=== PATIENT | female | born 1935 | race Caucasian/White ===

== ENCOUNTER → 2017-09-22 13:27 | Outpatient (CLI) | payer OTHER, SELFPAY ==
--- NOTE | 2017-09-22 13:29 | DI.US.S_ITS ---
PROCEDURE: US PERIPH VENOUS LOW EXTREM RT INDICATIONS: EDEMA TECHNIQUE: Real-time imaging, as well as color and pulse Doppler interrogation, were performed of the lower extremity deep veins from the inguinal ligament to the popliteal fossa. COMPARISON: None. FINDINGS: The deep veins are normally compressible, and free of intraluminal thrombus. Color and pulse Doppler demonstrate normal phasic intraluminal flow. There is normal augmentation response to distal compression maneuver. IMPRESSION: No deep venous thrombosis identified within the right lower extremity. Dictated by: Carlos Alberto Quigley [facility] Interpreted: Mariela Zuniga MD on 09/22/2017 at 14:52 Approved by: Mariela Zuniga MD, PhD on 09/22/2017 at 17:01
== END ==
PROVIDERS: Family Provider Family Medicine; PCP Family Medicine; Visit Provider Family Medicine
DX: R60.9 Edema, unspecified (principal); E11.9 Type 2 diabetes mellitus without complications; L98.9 Disorder of the skin and subcutaneous tissue, unspecified
CPT/HCPCS: 93971

== ENCOUNTER → 2017-10-03 07:53 | Outpatient (CLI) | payer OTHER, SELFPAY ==
[2017-10-03 09:46] LABS: Add Manual Diff / Slide Review NO; Basophils Percent Auto 0.9 % (0-2); Eosinophils Percent Auto 4.1 % (2-4); Hematocrit 36.5 % (36-46); Hemoglobin 12.1 g/dL (12.0-16.0); Lymphocytes Percent Auto 36.7 % (25-40); Mean Corpuscular HGB Conc 33.1 % (30-36); Mean Corpuscular Hemoglobin 28.3 PG (26-34); Mean Corpuscular Volume 85.6 fL (80-100); Monocytes Percent Auto 9.7 % (3-14); Neutrophils Absolute Auto 2500 /uL (3000-5900); Neutrophils Percent Auto 48.6 % (50-75); Platelet Count 189 X10^3/uL (150-400); Red Blood Cell Count 4.26 X10^6/uL (4.0-5.2); White Blood Cell Count 5.1 X10^3/uL (4.5-11.0)
[2017-10-03 09:56] LABS: Alanine Aminotransferase 20 IU/L (9-52); Albumin 3.8 g/dL (3.5-5.0); Albumin Globulin Ratio 1.2 (1.0-2.8); Alkaline Phosphatase 88 U/L (38-126); Aspartate Aminotransferase 20 IU/L (14-36); Bilirubin Total 0.6 mg/dL (0.2-1.3); Blood Urea Nitrogen 25 mg/dL (7-17); Calcium 9.5 mg/dL (8.4-10.2); Carbon Dioxide 29 mmol/L (22-32); Chloride 102 mmol/L (98-107); Cholesterol 168 mg/dL (140-199); Estimated Glomerular Filt Rate 53.1 mL/min (>60); Globulin 3.1 g/dL (1.7-4.1); Glucose 172 mg/dL (80-110); HDL Cholesterol 52 mg/dL (40-60); HEMOLYSIS < 15 (0-50); LDL Cholesterol Calculated 83 mg/dL (<100); Potassium 4.9 mmol/L (3.4-5.1); Sodium 140 mmol/L (137-145); Total Protein 6.9 g/dL (6.3-8.2); Triglycerides 167 mg/dL (35-150)
[2017-10-03 10:05] LABS: Vitamin D 25 Hydroxy (D3) 52.1 ng/mL (30.0-100.0)
[2017-10-03 10:20] LABS: TSH w/ Reflex to FT4 1.83 uIU/mL (0.47-4.68)
[2017-10-03 10:38] LABS: Vitamin B12 899 pg/mL (239-931)
[2017-10-03 10:51] LABS: Hemoglobin A1C% w Est Avg Glu 8.5 % (4.0-6.0)
== END ==
PROVIDERS: PCP Family Medicine; Visit Provider Family Medicine
DX: I10 Essential (primary) hypertension (principal); E78.5 Hyperlipidemia, unspecified; E11.9 Type 2 diabetes mellitus without complications; E03.9 Hypothyroidism, unspecified; E53.8 Deficiency of other specified B group vitamins; E55.9 Vitamin D deficiency, unspecified
CPT/HCPCS: 80053; 80061; 82306; 82607; 83036; 84443; 85025

== ENCOUNTER → 2017-10-08 17:33 | Outpatient (CLI) | payer OTHER, SELFPAY | PROVIDERS: Family Provider Family Medicine; PCP Family Medicine; Visit Provider Family Medicine | DX: L98.9 Disorder of the skin and subcutaneous tissue, unspecified (principal) | CPT/HCPCS: 87070; 87075; 87205 ==

== ENCOUNTER → 2017-10-21 11:18 | Outpatient (CLI) | payer OTHER, SELFPAY ==
--- NOTE | 2017-10-21 | OV.WND_ITS ---
Progress Note Details Patient Name: Harrison Egan Patient Number: [id number] PatientPatientDate: 10/21/2017 Clinician: Farida Velázquez Clinician Cosigner: Julia Leong Physician / Microbiology Manager: Martin Mcgraw SUBJECTIVE Chief Complaint This information was obtained from the patient Ulcer on right lateral leg. Allergies Novocain (Severity: Moderate, Reaction: adrenaline schaffer) HPI This information was obtained from the patient 10/21/17. Seen by Dr. Mcgraw. The patient's wound culture from her last visit showed no growth and she reports less pain and drainage associated with the ulcer over the past few days. 10/14/17. Seen by Dr. Mcgraw. 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 She has chronic venous hypertension in the right lower leg but does not wear a compression stocking. She's also been on Keflex for cellulitis associated with the ulcer but feels the pain and redness has only partially resolved. She also has a history of diabetes that is fairly well controlled with most blood sugars below 200 she states. Past Medical History This information was obtained from the patient Patient has a medical history of: Type II Diabetes High Cholesterol Hypothyroidism Pancreatitis Breast Cancer (L side) Complaints and Symptoms This information was obtained from the patient Patient complains of: General Notes: I have reviewed and concur with the Review of Systems and Past Family Social History documents completed by the clinician, I have reviewed and concur with the Wound Assessment document completed by the clinician Cardiovascular (Central/Peripheral): Lower extremity (leg) swelling Hematologic/Lymphatic: Bleeding Tendency Integumentary (Hair/Skin/Nails): Open Sore Prior Wound History: Drainage, Erythema, Pain Patient denies complaints or symptoms related to: Cardiovascular (Central/Peripheral): Lower extremity (leg) resting pain Constitutional Symptoms (General Health): Chills, Fever Ear/Nose/Mouth/Throat: Hearing Loss / Aid Hematologic/Lymphatic: Bleeding / Clotting Disorders Neurological: Loss of Protective Sensation Respiratory: Shortness of Breath Additional Information Does patient have a history of Cancer? Yes? Complete all questions.: Yes Location of Cancer: L breast List Treating Oncologist: Surgeon- Dr. Colin Patient underwent Radiation Treatment? If yes, answer question below.: No Date of Radiation Month/Year: n/a OBJECTIVE Constitutional BP elevated; Afebrile; Alert and in no distress. Well developed. Alert. Clean appearing.. Height/Length: 61 in (154.94 cm), Weight: 157.3 lbs (71.5 kgs), BMI: 29.7, Temperature: 98.3 ?F (36.83 ?C), Pulse: 64 bpm, Respiratory Rate: 18 breaths/min, Blood Pressure: 153/57 mmHg, Capillary Blood Glucose: 180 mg/dl, Pulse Oximetry: 98 %. Vital Signs Notes: Glucose per patient Ears, Nose, Mouth, and Throat: No clinically significant hearing loss on informal examination. Cardiovascular: 1+ right lower extremity edema. Integumentary (Hair, Skin) No periwound erythema, warmth, or significant drainage. No periwound rashes appreciated or noted otherwise.. Refer to appropriate clinician wound documentation for this visit; right lower leg ulcer extends to deep subcut with base partially covered with pink granulation, remainder fibrin and slough. Wound #1 Right, Distal Leg is a chronic Full Thickness Venous Ulcer and has received a status of Not Healed. Subsequent wound encounter measurements are 0.5cm length x 0.4cm width x 0.2cm depth, with an area of 0.2 sq cm and a volume of 0.04 cubic cm. No tunneling has been noted. No sinus tract has been noted. No undermining has been noted. There is a moderate amount of seropurulent drainage noted which has no odor. The patient reports a wound pain of level 0/10. The wound margin is attached. Wound bed has No epithelialization, No eschar, Yes slough, Yes pink, firm granulation. The periwound skin moisture is normal. The periwound skin exhibited: Edema, Erythema, Hemosiderosis. The periwound skin did not exhibit: Brawny Induration, Excoriation, Induration, Callus, Crepitus, Fluctuance, Friable, Rash, Atrophie [place], Cyanosis, Ecchymosis, Pallor, Rubor. The temperature of the periwound skin is WNL. Periwound skin does not exhibit signs or symptoms of infection. Local Pulse is Palpable. Neurological: Cranial nerves grossly intact with symmetric function normal by informal observation.. ASSESSMENT Active Problems ICD-10 (Encounter Diagnosis) L97.822 - Non-pressure chronic ulcer of other part of left lower leg with fat layer exposed PROCEDURES Wound #1 Wound #1 (Venous Ulcer) is located on the right, distal leg. A skin/ subcutaneous tissue level surgical debridement with a total area debrided of 0.24 sq cm was performed by Martin Mcgraw MD. Subcutaneous was removed along with devitalized tissue: exudate and slough. The following instrument(s) were used: curette. Pain control was achieved using 4% Lido. A time out was conducted prior to the start of the procedure. A minimal amount of bleeding was controlled with n/a. The procedure was tolerated well with a pain level of 0 throughout and a pain level of 0 following the procedure. Post Debridement Measurements: 0.6cm length x 0.4cm width x 0.4cm depth; with an area of 0.24 sq cm and a volume of 0.096 cubic cm; Additional Information Muscle fascia or bone removed and sent to pathology?: No PLAN Wound Orders: Wound #1 Right, Distal Leg Cleanser Cleanse Wound: - Normal saline and gauze in clinic, use distilled water at home. May Shower. - Use cast protector or plastic bag and tape. Can purchase cast protector at your local drug store near the pharmacy. Topical Treatments Antibiotic/Antimicrobial Ointment/Cream. - Gentamicin ointment. Dressings Cover and secure with: - Large 4 sided bandaid. Change Dressing: - Daily. Additional Orders: Compression/Edema Control Elevation of leg(s) above the level of the heart when sitting. Avoid prolonged standing in one place. Single Layer Compression Hose - Tetragrip F to right leg. On in the morning, remove at night. Follow-Up Appointments Return Appointment: - - One week. 10/30/17 is ok Other information: If you develop fever, chills, increased pain, drainage, redness or swelling please call our office. If after hours, respond to the ER. Should you experience any significant changes in your wound(s) or have any questions regarding your home care instructions please contact the wound center @ [phone]. If after hours, contact your primary care physician or go to the hospital emergency room. Scribing Attestation I attest, as the nurse, that I scribed these orders for the physician. I've reviewed the clinician's documentation and agree with the evaluation and plan as written. In addition, the patient's ulcer demonstrates evidence of non-viable devitalized tissue which will continue to benefit from sharp debridement to help promote granulation and expedite healing. Electronic Signature(s) Signed By: Date: Martin Mcgraw MD 10/22/2017 13:47:32 Entered By: Martin Mcgraw on 10/22/2017 11:14:03
== END ==
PROVIDERS: Family Provider Family Medicine; PCP Family Medicine; Visit Provider Internal Medicine
DX: I87.2 Venous insufficiency (chronic) (peripheral) (principal); L97.812 Non-pressure chronic ulcer of other part of right lower leg with fat layer exposed
CPT/HCPCS: 11042; 36415; 77063; 77065; 82378; 86300; 87070; 87075; 87205

== ENCOUNTER → 2017-10-27 10:53 | Outpatient (CLI) | payer OTHER, SELFPAY | PROVIDERS: Family Provider Family Medicine; PCP Family Medicine; Visit Provider Internal Medicine | DX: I87.2 Venous insufficiency (chronic) (peripheral) (principal); L97.812 Non-pressure chronic ulcer of other part of right lower leg with fat layer exposed; Z91.19 Patient's noncompliance with other medical treatment and regimen | CPT/HCPCS: 11042 ==

== ENCOUNTER → 2017-11-03 14:17 | Outpatient (CLI) | payer OTHER, SELFPAY ==
--- NOTE | 2017-11-03 | OV.WND_ITS ---
Progress Note Details Patient Name: Harrison Egan Patient Number: [id number] PatientPatientDate: 11/03/2017 Clinician: Farida Velázquez Clinician Cosigner: Julia Leong Physician / Sorority Supervisor: Martin Mcgraw SUBJECTIVE Chief Complaint This information was obtained from the patient Ulcer on right lateral leg. Allergies Novocain (Severity: Moderate, Reaction: adrenaline schaffer) HPI This information was obtained from the patient 11/03/17. Seen by Dr. Mcgraw. The patient does not report pain or significant drainage associated with the chronic right lower leg venous ulcer since her last visit. Her WATSON study today was .9 in the right lower leg. 10/27/17. Seen by Dr. Mcgraw. The patient does not report pain or significant drainage associated with the chronic right lower leg venous ulcer since her last visit. She does state though she's not wearing a compression stocking to address the chronic venous hypertension in the leg as recommended. 10/21/17. Seen by Dr. Mcgraw. The patient's wound culture from her last visit showed no growth and she reports less pain and drainage associated with the ulcer over the past few days. 10/14/17. Seen by Dr. Mcgraw. 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 She has chronic venous hypertension in the right lower leg but does not wear a compression stocking. She's also been on Keflex for cellulitis associated with the ulcer but feels the pain and redness has only partially resolved. She also has a history of diabetes that is fairly well controlled with most blood sugars below 200 she states. Past Medical History This information was obtained from the patient Patient has a medical history of: Type II Diabetes High Cholesterol Hypothyroidism Pancreatitis Breast Cancer (L side) Complaints and Symptoms This information was obtained from the patient Patient complains of: General Notes: I have reviewed and concur with the Review of Systems and Past Family Social History documents completed by the clinician, I have reviewed and concur with the Wound Assessment document completed by the clinician Cardiovascular (Central/Peripheral): Lower extremity (leg) swelling Hematologic/Lymphatic: Bleeding Tendency Integumentary (Hair/Skin/Nails): Open Sore Prior Wound History: Drainage, Erythema, Pain Patient denies complaints or symptoms related to: Cardiovascular (Central/Peripheral): Lower extremity (leg) resting pain Constitutional Symptoms (General Health): Chills, Fever Ear/Nose/Mouth/Throat: Hearing Loss / Aid Hematologic/Lymphatic: Bleeding / Clotting Disorders Neurological: Loss of Protective Sensation Respiratory: Shortness of Breath Additional Information Does patient have a history of Cancer? Yes? Complete all questions.: Yes Location of Cancer: L breast List Treating Oncologist: Surgeon- Dr. Colin Patient underwent Radiation Treatment? If yes, answer question below.: No Date of Radiation Month/Year: n/a OBJECTIVE Constitutional BP elevated; Afebrile; Alert and in no distress. Well developed. Alert. Clean appearing.. Height/Length: 61 in (154.94 cm), Weight: 156.7 lbs (71.23 kgs), BMI: 29.6, Temperature: 98.1 ?F (36.72 ?C), Pulse: 61 bpm, Respiratory Rate: 18 breaths/min, Blood Pressure: 140/60 mmHg, Capillary Blood Glucose: 182 mg/dl, Pulse Oximetry: 99 %. Vital Signs Notes: Glucose per patient Respiratory: No respiratory distress. Even respirations and without use of accessory muscles.. Cardiovascular: 1+ dorsalis pedis and posterior tibial on the right. 2+ right lower extremity edema. Integumentary (Hair, Skin) No periwound erythema, warmth, or significant drainage. No periwound rashes appreciated or noted otherwise.. Refer to appropriate clinician wound documentation for this visit; right lower leg ulcer extends to subcut with base partially covered with pink granulation, remainder fibrin and slough. Wound #1 Right, Distal Leg is a chronic Full Thickness Venous Ulcer and has received a status of Not Healed. Subsequent wound encounter measurements are 0.5cm length x 0.2cm width x 0.5cm depth, with an area of 0.1 sq cm and a volume of 0.05 cubic cm. No tunneling has been noted. No sinus tract has been noted. No undermining has been noted. There is a moderate amount of seropurulent drainage noted which has no odor. The patient reports a wound pain of level 0/10. The wound margin is attached. Wound bed has No epithelialization, No eschar, Yes slough, Yes pink, firm granulation. The periwound skin moisture is normal. The periwound skin exhibited: Edema, Erythema, Hemosiderosis. The periwound skin did not exhibit: Brawny Induration, Excoriation, Induration, Callus, Crepitus, Fluctuance, Friable, Rash, Atrophie [place], Cyanosis, Ecchymosis, Pallor, Rubor. The temperature of the periwound skin is WNL. Periwound skin does not exhibit signs or symptoms of infection. Local Pulse is Palpable. Neurological: Cranial nerves grossly intact with symmetric function normal by informal observation.. ASSESSMENT Active Problems ICD-10 (Encounter Diagnosis) L97.822 - Non-pressure chronic ulcer of other part of left lower leg with fat layer exposed (Encounter Diagnosis) I87.311 - Chronic venous hypertension (idiopathic) with ulcer of right lower extremity PROCEDURES Wound #1 Wound #1 (Venous Ulcer) is located on the right, distal leg. A skin/ subcutaneous tissue level surgical debridement with a total area debrided of 0.1 sq cm was performed by Martin Mcgraw MD. Subcutaneous was removed along with devitalized tissue: exudate and slough. The following instrument(s) were used: curette. Pain control was achieved using EMLA lidocaine/prilocaine 2.5%/2.5%. A time out was conducted prior to the start of the procedure. A minimal amount of bleeding was controlled with n/a. The procedure was tolerated well with a pain level of 0 throughout and a pain level of 0 following the procedure. Post Debridement Measurements: 0.5cm length x 0.2cm width x 0.6cm depth; with an area of 0.1 sq cm and a volume of 0.06 cubic cm; Wound #1 (Venous Ulcer) is located on the right, distal leg. A Multilayer Compression procedure was performed by Farida Velázquez RN. General Notes: Coban 2 lite Additional Information Muscle fascia or bone removed and sent to pathology?: No PLAN Wound Orders: Wound #1 Right, Distal Leg Cleanser Cleanse Wound: - Normal saline and gauze in clinic, use distilled water at home. May Shower. - Use cast protector or plastic bag and tape. Can purchase cast protector at your local drug store near the pharmacy. Topical Treatments Antibiotic/Antimicrobial Ointment/Cream. - Gentamicin ointment. Dressings Cover and secure with: - Large 4 sided bandaid. Change Dressing: - Daily. Additional Orders: Compression/Edema Control Elevation of leg(s) above the level of the heart when sitting. Avoid prolonged standing in one place. Multi Layer Wrap: - Coban lite. Do not get leg(s) with compression wrap wet. If wraps are too tight call the wound care center or remove if you are unable to reach the center. Please remove wraps for numbness, tingling, pain in legs or color changes in toes and call the clinic the same day. If symptoms do not resolve after removing wraps please go to the ER for evaluation. Local pharmacies carry plastic cast protectors that may be used for protection while showering. Follow-Up Appointments Return Appointment: - - Other information: If you develop fever, chills, increased pain, drainage, redness or swelling please call our office. If after hours, respond to the ER. Should you experience any significant changes in your wound(s) or have any questions regarding your home care instructions please contact the wound center @ [phone]. If after hours, contact your primary care physician or go to the hospital emergency room. Scribing Attestation I attest, as the nurse, that I scribed these orders for the physician. I've reviewed the clinician's documentation and agree with the evaluation and plan as written. In addition, the patient's ulcer demonstrates evidence of non-viable devitalized tissue which will continue to benefit from sharp debridement to help promote granulation and expedite healing. Also, the patient's right lower leg ulcer is slowly improving and we've started compression therapy with a Coban Lite wrap today to further facilitate healing and to treat her right lower leg chronic venous hypertension. Electronic Signature(s) Signed By: Date: Martin Mcgraw MD 11/03/2017 16:47:11 Entered By: Martin Mcgraw on 11/03/2017 16:34:43
== END ==
PROVIDERS: Family Provider Family Medicine; PCP Family Medicine; Visit Provider Internal Medicine
DX: I87.2 Venous insufficiency (chronic) (peripheral) (principal); L97.811 Non-pressure chronic ulcer of other part of right lower leg limited to breakdown of skin; E11.9 Type 2 diabetes mellitus without complications
CPT/HCPCS: 11042

== ENCOUNTER → 2017-11-05 14:16 | Outpatient (CLI) | payer OTHER, SELFPAY ==
--- NOTE | 2017-11-05 | OV.WND_ITS ---
Progress Note Details Patient Name: Harrison Egan Patient Number: [id number] PatientPatientDate: 11/05/2017 Clinician: Farida Velázquez Physician / Machine Lacer: Martin Mcgraw SUBJECTIVE Chief Complaint This information was obtained from the patient Ulcer on right lateral leg. Allergies Novocain (Severity: Moderate, Reaction: adrenaline schaffer) HPI This information was obtained from the patient 11/05/17. Seen by Dr. Mcgraw. The patient reports some discomfort over the anterior ankle after placing a Coban compression wrap at her last visit however she does not report pain or significant drainage associated with the chronic right lower leg venous ulcer. 11/03/17. Seen by Dr. Mcgraw. The patient does not report pain or significant drainage associated with the chronic right lower leg venous ulcer since her last visit. Her WATSON study today was .9 in the right lower leg. 10/27/17. Seen by Dr. Mcgraw. The patient does not report pain or significant drainage associated with the chronic right lower leg venous ulcer since her last visit. She does state though she's not wearing a compression stocking to address the chronic venous hypertension in the leg as recommended. 10/21/17. Seen by Dr. Mcgraw. The patient's wound culture from her last visit showed no growth and she reports less pain and drainage associated with the ulcer over the past few days. 10/14/17. Seen by Dr. Mcgraw. 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 She has chronic venous hypertension in the right lower leg but does not wear a compression stocking. She's also been on Keflex for cellulitis associated with the ulcer but feels the pain and redness has only partially resolved. She also has a history of diabetes that is fairly well controlled with most blood sugars below 200 she states. Past Medical History This information was obtained from the patient Patient has a medical history of: Type II Diabetes High Cholesterol Hypothyroidism Pancreatitis Breast Cancer (L side) Complaints and Symptoms This information was obtained from the patient Patient complains of: General Notes: I have reviewed and concur with the Review of Systems and Past Family Social History documents completed by the clinician, I have reviewed and concur with the Wound Assessment document completed by the clinician Cardiovascular (Central/Peripheral): Lower extremity (leg) swelling Hematologic/Lymphatic: Bleeding Tendency Integumentary (Hair/Skin/Nails): Open Sore Prior Wound History: Drainage, Erythema, Pain Patient denies complaints or symptoms related to: Cardiovascular (Central/Peripheral): Lower extremity (leg) resting pain Constitutional Symptoms (General Health): Chills, Fever Ear/Nose/Mouth/Throat: Hearing Loss / Aid Hematologic/Lymphatic: Bleeding / Clotting Disorders Neurological: Loss of Protective Sensation Respiratory: Shortness of Breath Additional Information Does patient have a history of Cancer? Yes? Complete all questions.: Yes Location of Cancer: L breast List Treating Oncologist: Surgeon- Dr. Colin Patient underwent Radiation Treatment? If yes, answer question below.: No Date of Radiation Month/Year: n/a OBJECTIVE Constitutional BP elevated; Afebrile; Alert and in no distress. Well developed. Alert. Clean appearing.. Height/Length: 61 in (154.94 cm), Weight: 156.7 lbs (71.23 kgs), BMI: 29.6, Temperature: 98 ?F (36.67 ?C), Pulse: 64 bpm, Respiratory Rate: 18 breaths/min, Blood Pressure: 176/68 mmHg, Capillary Blood Glucose: 170 mg/dl, Pulse Oximetry: 98 %. Vital Signs Notes: Glucose per patient Ears, Nose, Mouth, and Throat: Mild hearing deficit. Respiratory: No respiratory distress. Even respirations and without use of accessory muscles.. Cardiovascular: 1+ right lower extremity edema; improved from last visit. Integumentary (Hair, Skin) Hemosiderin staining noted over right lower leg. Refer to appropriate clinician wound documentation for this visit; right lower leg ulcer extends to subcut with base partially covered with pink granulation, remainder fibrin and slough. Wound #1 Right, Distal Leg is a chronic Full Thickness Venous Ulcer and has received a status of Not Healed. Subsequent wound encounter measurements are 0.4cm length x 0.2cm width x 0cm depth, with an area of 0.08 sq cm and a volume of 0 cubic cm. No tunneling has been noted. No sinus tract has been noted. No undermining has been noted. There is a moderate amount of seropurulent drainage noted which has no odor. The patient reports a wound pain of level 0/10. The wound margin is attached. Wound bed has No epithelialization, No eschar, Yes slough, Yes pink, firm granulation. The periwound skin moisture is normal. The periwound skin exhibited: Edema, Erythema, Hemosiderosis. The periwound skin did not exhibit: Brawny Induration, Excoriation, Induration, Callus, Crepitus, Fluctuance, Friable, Rash, Atrophie Ana Luisa, Cyanosis, Ecchymosis, Pallor, Rubor. The temperature of the periwound skin is WNL. Periwound skin does not exhibit signs or symptoms of infection. Local Pulse is Palpable. Neurological: Cranial nerves grossly intact with symmetric function normal by informal observation.. ASSESSMENT Active Problems ICD-10 (Encounter Diagnosis) L97.822 - Non-pressure chronic ulcer of other part of left lower leg with fat layer exposed (Encounter Diagnosis) I87.311 - Chronic venous hypertension (idiopathic) with ulcer of right lower extremity PROCEDURES Wound #1 Wound #1 (Venous Ulcer) is located on the right, distal leg. A skin/ subcutaneous tissue level surgical debridement with a total area debrided of 0.08 sq cm was performed by Martin Mcgraw MD. Subcutaneous was removed along with devitalized tissue: exudate and slough. The following instrument(s) were used: curette. Pain control was achieved using 4% Lido. A time out was conducted prior to the start of the procedure. A minimal amount of bleeding was controlled with n/a. The procedure was tolerated well with a pain level of 0 throughout and a pain level of 0 following the procedure. Post Debridement Measurements: 0.4cm length x 0.2cm width x 0.4cm depth; with an area of 0.08 sq cm and a volume of 0.032 cubic cm; Wound #1 (Venous Ulcer) is located on the right, distal leg. A Multilayer Compression procedure was performed by Martin Mcgraw MD. General Notes: Coban 2 lite Additional Information Muscle fascia or bone removed and sent to pathology?: No PLAN Wound Orders: Wound #1 Right, Distal Leg Cleanser Cleanse Wound: - Normal saline and gauze in clinic, use distilled water at home. May Shower. - Use cast protector or plastic bag and tape. Can purchase cast protector at your local drug store near the pharmacy. Topical Treatments Antibiotic/Antimicrobial Ointment/Cream. - Gentamicin ointment. Dressings Cover and secure with: - Large 4 sided bandaid. Change Dressing: - At next visit Additional Orders: Compression/Edema Control Elevation of leg(s) above the level of the heart when sitting. Avoid prolonged standing in one place. Multi Layer Wrap: - Coban lite. Do not get leg(s) with compression wrap wet. If wraps are too tight call the wound care center or remove if you are unable to reach the center. Please remove wraps for numbness, tingling, pain in legs or color changes in toes and call the clinic the same day. If symptoms do not resolve after removing wraps please go to the ER for evaluation. Local pharmacies carry plastic cast protectors that may be used for protection while showering. Follow-Up Appointments Return Appointment: - - Other information: If you develop fever, chills, increased pain, drainage, redness or swelling please call our office. If after hours, respond to the ER. Should you experience any significant changes in your wound(s) or have any questions regarding your home care instructions please contact the wound center @ [phone]. If after hours, contact your primary care physician or go to the hospital emergency room. Scribing Attestation I attest, as the nurse, that I scribed these orders for the physician. I've reviewed the clinician's documentation and agree with the evaluation and plan as written. In addition, the patient's ulcer demonstrates evidence of non-viable devitalized tissue which will continue to benefit from sharp debridement to help promote granulation and expedite healing. Also, we've covered the anterior ankle with foam to help reduce the discomfort associated with the compression wrap. Electronic Signature(s) Signed By: Date: Martin Mcgraw MD 11/06/2017 09:29:15 Entered By: Martin Mcgraw on 11/06/2017 08:08:03
== END ==
PROVIDERS: Family Provider Family Medicine; PCP Family Medicine; Visit Provider Internal Medicine
DX: I87.2 Venous insufficiency (chronic) (peripheral) (principal); L97.811 Non-pressure chronic ulcer of other part of right lower leg limited to breakdown of skin
CPT/HCPCS: 11042

== ENCOUNTER → 2017-11-12 13:38 | Outpatient (CLI) | payer OTHER, SELFPAY | PROVIDERS: Family Provider Family Medicine; PCP Family Medicine; Visit Provider Internal Medicine | DX: I87.2 Venous insufficiency (chronic) (peripheral) (principal); L97.812 Non-pressure chronic ulcer of other part of right lower leg with fat layer exposed | CPT/HCPCS: 11042 ==

== ENCOUNTER → 2017-11-19 13:47 | Outpatient (CLI) | payer OTHER, SELFPAY ==
--- NOTE | 2017-11-19 | OV.WND_ITS ---
Progress Note Details Patient Name: Harrison Egan Patient Number: [id number] PatientPatientDate: 11/19/2017 Clinician: Tila Galindo Clinician Cosigner: Julia Leong Physician / Oil Filters Inspector: Martin Mcgraw SUBJECTIVE Chief Complaint This information was obtained from the patient Ulcer on right lateral leg. Allergies Novocain (Severity: Moderate, Reaction: adrenaline schaffer) HPI This information was obtained from the patient 11/19/17. Seen by Dr. Mcgraw. The patient does not report pain or significant drainage associated with the chronic right lower leg venous ulcer since her last visit. 11/12/17. Seen by Dr. Mcgraw. The patient was unable to tolerate her right lower leg compression wrap stating it kept falling down and she removed it on Thursday. She does not report pain or significant drainage associated with the right lower leg venous ulcer since her last visit and in general feels it's improving. 11/05/17. Seen by Dr. Mcgraw. The patient reports some discomfort over the anterior ankle after placing a Coban compression wrap at her last visit however she does not report pain or significant drainage associated with the chronic right lower leg venous ulcer. 11/03/17. Seen by Dr. Mcgraw. The patient does not report pain or significant drainage associated with the chronic right lower leg venous ulcer since her last visit. Her WATSON study today was .9 in the right lower leg. 10/27/17. Seen by Dr. Mcgraw. The patient does not report pain or significant drainage associated with the chronic right lower leg venous ulcer since her last visit. She does state though she's not wearing a compression stocking to address the chronic venous hypertension in the leg as recommended. 10/21/17. Seen by Dr. Mcgraw. The patient's wound culture from her last visit showed no growth and she reports less pain and drainage associated with the ulcer over the past few days. 10/14/17. Seen by Dr. Mcgraw. 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 She has chronic venous hypertension in the right lower leg but does not wear a compression stocking. She's also been on Keflex for cellulitis associated with the ulcer but feels the pain and redness has only partially resolved. She also has a history of diabetes that is fairly well controlled with most blood sugars below 200 she states. Past Medical History This information was obtained from the patient Patient has a medical history of: Type II Diabetes High Cholesterol Hypothyroidism Pancreatitis Breast Cancer (L side) Complaints and Symptoms This information was obtained from the patient Patient complains of: General Notes: I have reviewed and concur with the Review of Systems and Past Family Social History documents completed by the clinician, I have reviewed and concur with the Wound Assessment document completed by the clinician Cardiovascular (Central/Peripheral): Lower extremity (leg) swelling Hematologic/Lymphatic: Bleeding Tendency Integumentary (Hair/Skin/Nails): Open Sore Prior Wound History: Drainage, Erythema, Pain Patient denies complaints or symptoms related to: Cardiovascular (Central/Peripheral): Lower extremity (leg) resting pain Constitutional Symptoms (General Health): Chills, Fever Ear/Nose/Mouth/Throat: Hearing Loss / Aid Hematologic/Lymphatic: Bleeding / Clotting Disorders Neurological: Loss of Protective Sensation Respiratory: Shortness of Breath Additional Information Does patient have a history of Cancer? Yes? Complete all questions.: Yes Location of Cancer: L breast List Treating Oncologist: Surgeon- Dr. Colin Patient underwent Radiation Treatment? If yes, answer question below.: No Date of Radiation Month/Year: n/a OBJECTIVE Constitutional BP elevated; Afebrile; Alert and in no distress. Well developed. Alert. Clean appearing.. Height/Length: 61 in (154.94 cm), Weight: 157.8 lbs (71.73 kgs), BMI: 29.8, Temperature: 98.4 ?F (36.89 ?C), Pulse: 62 bpm, Respiratory Rate: 18 breaths/min, Blood Pressure: 180/68 mmHg, Capillary Blood Glucose: 151 mg/dl, Pulse Oximetry: 99 %. Vital Signs Notes: Glucose per patient. Respiratory: No respiratory distress. Even respirations and without use of accessory muscles.. Cardiovascular: 2+ right lower extremity edema. Integumentary (Hair, Skin) No periwound erythema, warmth, or significant drainage. No periwound rashes appreciated or noted otherwise.. Refer to appropriate clinician wound documentation for this visit; right lower leg ulcer extends to subcut with base partially covered with pink granulation, remainder fibrin and slough. Wound #1 Right, Distal Leg is a chronic Full Thickness Venous Ulcer and has received a status of Not Healed. Subsequent wound encounter measurements are 0.4cm length x 0.2cm width x 0.2cm depth, with an area of 0.08 sq cm and a volume of 0.016 cubic cm. No tunneling has been noted. No sinus tract has been noted. No undermining has been noted. There is a small amount of serous drainage noted which has no odor. The patient reports a wound pain of level 0/10. The wound margin is attached. Wound bed has No epithelialization, No eschar, Yes slough, Yes pink, firm granulation. The periwound skin moisture is normal. The periwound skin exhibited: Edema, Hemosiderosis. The periwound skin did not exhibit: Brawny Induration, Excoriation, Induration, Callus, Crepitus, Fluctuance, Friable, Rash, Atrophie Ana Luisa, Cyanosis, Ecchymosis, Erythema, Pallor, Rubor. The temperature of the periwound skin is WNL. Periwound skin does not exhibit signs or symptoms of infection. Local Pulse is Palpable. Neurological: Cranial nerves grossly intact with symmetric function normal by informal observation.. ASSESSMENT Active Problems ICD-10 (Encounter Diagnosis) L97.822 - Non-pressure chronic ulcer of other part of left lower leg with fat layer exposed (Encounter Diagnosis) I87.311 - Chronic venous hypertension (idiopathic) with ulcer of right lower extremity PROCEDURES Wound #1 Wound #1 (Venous Ulcer) is located on the right, distal leg. A skin/ subcutaneous tissue level surgical debridement with a total area debrided of 0.12 sq cm was performed by Martin Mcgraw MD. Subcutaneous was removed along with devitalized tissue: exudate and slough. The following instrument(s) were used: curette. Pain control was achieved using 4% Lido. A time out was conducted prior to the start of the procedure. A minimal amount of bleeding was controlled with pressure. The procedure was tolerated well with a pain level of 0 throughout and a pain level of 0 following the procedure. Post Debridement Measurements: 0.4cm length x 0.3cm width x 0.3cm depth; with an area of 0.12 sq cm and a volume of 0.036 cubic cm; Additional Information Muscle fascia or bone removed and sent to pathology?: No PLAN Wound Orders: Wound #1 Right, Distal Leg Cleanser Cleanse Wound: - Normal saline and gauze in clinic, use distilled water at home. May Shower. - Use cast protector or plastic bag and tape. Can purchase cast protector at your local drug store near the pharmacy. Dressings Cover and secure with: - Large 4 sided bandaid. Change Dressing: - Every other day. Additional Orders: Compression/Edema Control Elevation of leg(s) above the level of the heart when sitting. Avoid prolonged standing in one place. Single Layer Compression Hose - Tetragrip E tubular compression stocking. On in the morning, remove at night. Follow-Up Appointments Return Appointment: - - 10 days. Other information: If you develop fever, chills, increased pain, drainage, redness or swelling please call our office. If after hours, respond to the ER. Should you experience any significant changes in your wound(s) or have any questions regarding your home care instructions please contact the wound center @ [phone]. If after hours, contact your primary care physician or go to the hospital emergency room. Scribing Attestation I attest, as the nurse, that I scribed these orders for the physician. Electronic Signature(s) Signed By: Date: Martin Mcgraw MD 11/20/2017 08:53:09 Entered By: Martin Mcgraw on 11/20/2017 07:09:04
== END ==
PROVIDERS: Family Provider Family Medicine; PCP Family Medicine; Visit Provider Internal Medicine
DX: I87.311 Chronic venous hypertension (idiopathic) with ulcer of right lower extremity (principal); L97.812 Non-pressure chronic ulcer of other part of right lower leg with fat layer exposed
CPT/HCPCS: 11042

== ENCOUNTER → 2017-12-01 13:33 | Outpatient (CLI) | payer OTHER, SELFPAY | PROVIDERS: Family Provider Family Medicine; PCP Family Medicine; Visit Provider Internal Medicine | DX: I87.311 Chronic venous hypertension (idiopathic) with ulcer of right lower extremity (principal); L97.812 Non-pressure chronic ulcer of other part of right lower leg with fat layer exposed | CPT/HCPCS: 11042 ==

== ENCOUNTER → 2017-12-15 13:35 | Outpatient (CLI) | payer OTHER, SELFPAY ==
--- NOTE | 2017-12-15 | OV.WND_ITS ---
Progress Note Details Patient Name: Harrison Egan Patient Number: [id number] PatientPatientDate: 12/15/2017 Clinician: Suha Sanford Clinician Cosigner: Julia Leong Physician / Program Management Manager: Martin Mcgraw SUBJECTIVE Chief Complaint This information was obtained from the patient Ulcer on right lateral leg. Allergies Novocain (Severity: Moderate, Reaction: adrenaline schaffer) HPI This information was obtained from the patient 12/15/17. Seen by Dr. Mcgraw. The patient does not report pain or significant drainage associated with the chronic right lower leg venous ulcer since her last visit. She's wearing a compression stocking daily to treat the associated chronic venous hypertension and did not tolerate a compression wrap in the past due to non-specific discomfort not felt to be related to PAD noting her WATSON on the right was 0.9. 12/01/17. Seen by Dr. Mcgraw. The patient does not report pain or significant drainage associated with the chronic right lower leg venous ulcer since her last visit. 11/19/17. Seen by Dr. Mcgraw. The patient does not report pain or significant drainage associated with the chronic right lower leg venous ulcer since her last visit. 11/12/17. Seen by Dr. Mcgraw. The patient was unable to tolerate her right lower leg compression wrap stating it kept falling down and she removed it on Thursday. She does not report pain or significant drainage associated with the right lower leg venous ulcer since her last visit and in general feels it's improving. 11/05/17. Seen by Dr. Mcgraw. The patient reports some discomfort over the anterior ankle after placing a Coban compression wrap at her last visit however she does not report pain or significant drainage associated with the chronic right lower leg venous ulcer. 11/03/17. Seen by Dr. Mcgraw. The patient does not report pain or significant drainage associated with the chronic right lower leg venous ulcer since her last visit. Her WATSON study today was .9 in the right lower leg. 10/27/17. Seen by Dr. Mcgraw. The patient does not report pain or significant drainage associated with the chronic right lower leg venous ulcer since her last visit. She does state though she's not wearing a compression stocking to address the chronic venous hypertension in the leg as recommended. 10/21/17. Seen by Dr. Mcgraw. The patient's wound culture from her last visit showed no growth and she reports less pain and drainage associated with the ulcer over the past few days. 10/14/17. Seen by Dr. Mcgraw. 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 She has chronic venous hypertension in the right lower leg but does not wear a compression stocking. She's also been on Keflex for cellulitis associated with the ulcer but feels the pain and redness has only partially resolved. She also has a history of diabetes that is fairly well controlled with most blood sugars below 200 she states. Past Medical History This information was obtained from the patient Patient has a medical history of: Type II Diabetes High Cholesterol Hypothyroidism Pancreatitis Breast Cancer (L side) Complaints and Symptoms This information was obtained from the patient Patient complains of: General Notes: I have reviewed and concur with the Review of Systems and Past Family Social History documents completed by the clinician, I have reviewed and concur with the Wound Assessment document completed by the clinician Cardiovascular (Central/Peripheral): Lower extremity (leg) swelling Hematologic/Lymphatic: Bleeding Tendency Integumentary (Hair/Skin/Nails): Open Sore Prior Wound History: Drainage, Erythema, Pain Patient denies complaints or symptoms related to: Cardiovascular (Central/Peripheral): Lower extremity (leg) resting pain Constitutional Symptoms (General Health): Chills, Fever Ear/Nose/Mouth/Throat: Hearing Loss / Aid Hematologic/Lymphatic: Bleeding / Clotting Disorders Neurological: Loss of Protective Sensation Respiratory: Shortness of Breath Additional Information Does patient have a history of Cancer? Yes? Complete all questions.: Yes Location of Cancer: L breast List Treating Oncologist: Surgeon- Dr. Colin Patient underwent Radiation Treatment? If yes, answer question below.: No Date of Radiation Month/Year: n/a OBJECTIVE Constitutional Vital signs reviewed and noted. Well developed. Alert. Clean appearing.. Height/ Length: 61 in (154.94 cm), Weight: 156.8 lbs (71.27 kgs), BMI: 29.6, Temperature: 96.6 ?F ( 35.89 ?C), Pulse: 67 bpm, Respiratory Rate: 18 breaths/min, Blood Pressure: 120/70 mmHg, Capillary Blood Glucose: 187 mg/dl, Pulse Oximetry: 99 %. Vital Signs Notes: Glucose per patient. Respiratory: No respiratory distress. Even respirations and without use of accessory muscles.. Cardiovascular: 2+ right lower extremity edema. Integumentary (Hair, Skin) No periwound erythema, warmth, or significant drainage. No periwound rashes appreciated or noted otherwise.. Refer to appropriate clinician wound documentation for this visit; right lower leg ulcer extends to subcut with base partially covered with pink granulation, remainder fibrin and slough. Wound #1 Right, Distal Leg is a chronic Full Thickness Venous Ulcer and has received a status of Not Healed. Subsequent wound encounter measurements are 0.2cm length x 0.1cm width x 0.2cm depth, with an area of 0.02 sq cm and a volume of 0.004 cubic cm. No tunneling has been noted. No sinus tract has been noted. No undermining has been noted. There is a small amount of serous drainage noted which has no odor. The patient reports a wound pain of level 0/10. The wound margin is attached. Wound bed has Yes epithelialization, No eschar, Yes slough, Yes pink, firm granulation. The periwound skin texture is normal. The periwound skin moisture is normal. The periwound skin exhibited: Hemosiderosis. The periwound skin did not exhibit: Atrophie Ana Luisa, Cyanosis, Ecchymosis, Erythema, Pallor, Rubor. The temperature of the periwound skin is WNL. Periwound skin does not exhibit signs or symptoms of infection. Local Pulse is Palpable. Neurological: Cranial nerves grossly intact with symmetric function normal by informal observation.. ASSESSMENT Active Problems ICD-10 (Encounter Diagnosis) L97.822 - Non-pressure chronic ulcer of other part of left lower leg with fat layer exposed (Encounter Diagnosis) I87.311 - Chronic venous hypertension (idiopathic) with ulcer of right lower extremity (Encounter Diagnosis) Z91.19 - Patient's noncompliance with other medical treatment and regimen PLAN Wound Orders: Wound #1 Right, Distal Leg Anesthetic Topical Xylocaine to wound bed. - In clinic only. Cleanser Cleanse Wound: - Normal saline and gauze in clinic, use distilled water at home. May Shower. - Use cast protector or plastic bag and tape. Can purchase cast protector at your local drug store near the pharmacy. Dressings Cover and secure with: - Bordered foam, may use bandaid at home. Change Dressing: - Every 3 days. Compression/Edema Control Elevation of leg(s) above the level of the heart when sitting. Avoid prolonged standing in one place. Single Layer Compression Hose - Tetragrip E tubular compression stocking. On in the morning, remove at night. Follow-Up Appointments Return Appointment: - - Three weeks. Other information: If you develop fever, chills, increased pain, drainage, redness or swelling please call our office. If after hours, respond to the ER. Should you experience any significant changes in your wound(s) or have any questions regarding your home care instructions please contact the wound center @ [phone]. If after hours, contact your primary care physician or go to the hospital emergency room. Scribing Attestation I attest, as the nurse, that I scribed these orders for the physician. I've reviewed the clinician's documentation and agree with the evaluation and plan as written. Also, the patient's refused my recommendation of applying a compression wrap today which would greatly benefit in terms of healing the right lower leg chronic ulcer. She wear a compression stocking however instead and will return in 3 weeks. Electronic Signature(s) Signed By: Date: Martin Mcgraw MD 12/16/2017 13:52:56 Entered By: Martin Mcgraw on 12/16/2017 12:29:05
== END ==
PROVIDERS: Family Provider Family Medicine; PCP Family Medicine; Visit Provider Internal Medicine
DX: I87.311 Chronic venous hypertension (idiopathic) with ulcer of right lower extremity (principal); L97.812 Non-pressure chronic ulcer of other part of right lower leg with fat layer exposed
CPT/HCPCS: 99212

== ENCOUNTER 2017-12-17 07:29 | Day surgery (SDC) | payer OTHER, SELFPAY ==
[2017-12-17] VITALS (7 sets, daily range): BP systolic 117–159; BP diastolic 53–67; PULSE 59–64; RESP 12–16; TEMP 36.1–36.2; O2SAT 96–100; BMI 29.5
--- NOTE | 2017-12-17 | PATH_ITS ---
[facility] Accession Number: [id number] . 01 Material submitted: . RANDOM COLON MUCOSAL BIOPSIES . 02 Diagnosis: Random Colon, Biopsies: Colonic mucosa with no diagnostic abnormality. Negative for active or microscopic colitis. Negative for granulomata, dysplasia or malignancy. [facility]/12/18/2017 . 02 Electronically signed: . Gaston Gilmore MD, PhD, Pathologist NPI- [id number] . 01 Gross description: . Received in one formalin-filled container labeled with the patient's name and labeled random mucosal colon, are multiple 0.1-0.4 cm portions of tissue, which are filtered, wrapped, and entirely submitted in one cassette. ([id number]) /FRR . 02 Pathologist provided ICD-10: R19.4 . 02 CPT . 399626 Specimen Comment: A duplicate report has been generated due to demographic updates. Performed at: 01 [facility] [address] [place] [address], [place], [place] [id number] MD Jared Nuno MD Phone: [phone] Performed at: 02 [facility] [address] [place], [place] [id number] MD Douglas Culp MD Phone: [phone]
[2017-12-17] MEDS: fentaNYL 250 MCG/5 ML INJ IV (09:53)
[2017-12-17] MEDS: MIDAZOLAM 5 MG/5 ML VIAL IV (09:54)
--- NOTE | 2017-12-17 10:04 | PM.HP.1 ---
History of Present Illness Date Patient Seen: 12/17/17 Time Patient Seen: 10:04 Chief complaint: [id number] SCREENING COLONOSCOPY Narrative: Darling is a very pleasant 82-year-old lady who is well known to me. She presents today for screening colonoscopy. She reports that about 6 months ago she had several episodes of diarrhea and her bowel habits changed for a while. They have subsequently gone back to completely normal. Never the less, it is time for screening colonoscopy study. 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 extremity (deep vein thrombosis) (Chronic) DVT, lower extremity (Chronic) Diabetes mellitus (Chronic ~2009) Drusen of macula (Chronic) Hypertension (Chronic) Pancreatitis (Chronic) Skin cancer (Chronic) Breast cancer, right breast (Inactive) Myocardial infarction (Inactive) Surgical History History of cataract surgery (Resolved ~10/03/09) History of cataract surgery (Resolved ~09/12/09) History of eye surgery (Resolved) History of mastectomy (Resolved ~08/06/12) History of cataract removal with insertion of prosthetic lens (09/12/09) History of cataract removal with insertion of prosthetic lens (10/03/09) Status post cholecystectomy Status post eye surgery Status post hammer toe correction (04/15/13) Status post tonsillectomy and adenoidectomy Family & Social History Family History: Reviewed 12/17/17 by Mary Andujar MD Social History: household members none Tobacco & Substance use: Smoking Status Former smoker Meds Home Medications Medication Instructions Recorded Confirmed Type CHOLECALCIFEROL (VITAMIN D) 2,000 units PO QDAY #0 07/26/12 10/29/17 History aspirin 81 mg PO QDAY #0 10/20/12 10/29/17 History cyanocobalamin (vitamin B-12) 1,000 mcg IM SEE INSTRUCTIONS #1 ea 07/09/16 10/29/17 Rx Lancet: Device ea SEE INSTRUCTIONS #400 12/26/16 10/08/17 Rx Test Strips - Freestyle ea ACHS #400 01/02/17 10/08/17 Rx metformin 500 mg tablet 500 mg PO QDAY tab 09/25/17 10/29/17 History simvastatin [Zocor] 40 mg PO HS #90 tab 10/08/17 10/29/17 Rx lisinopril 20 mg tablet 20 mg PO QDAY #90 tab 11/24/17 Rx metoprolol tartrate 50 mg tablet 50 mg PO BID #180 tab 11/24/17 Rx glimepiride [Amaryl] 8 mg PO QDAY #180 tab 12/03/17 Rx levothyroxine 75 mcg tablet 75 mcg PO QDAY #90 tab 12/14/17 Rx Allergies Allergy/AdvReac Type Severity Reaction Status Date / Time No Known Drug Allergies Allergy Verified 10/08/17 16:22 Review of Systems Review of Systems All systems reviewed & are unremarkable except as noted in HPI and below Exam Vital Signs (past 8 hours): - 12/17/17 07:50 Temperature 97.1 F L Pulse Rate 59 L Respiratory Rate 15 Blood Pressure 159/67 H Pulse Oximetry 100 Oxygen Delivery Method Room Air Narrative Exam Narrative: Very pleasant lady in no obvious distress HEENT: Normocephalic and atraumatic, pupils equal round reactive to light accommodation with anicteric sclera Lungs: Clear bilaterally Heart: Regular rate and rhythm Abdomen: Soft, nontender, active bowel sounds Extremities: Warm and well perfused Assessment & Plan Plan: Assessment/Plan Narrative: Very pleasant lady here for screening colonoscopy. We discussed the risks and benefits of the procedure and she has expressed a desire to complete it today
--- NOTE | 2017-12-17 10:06 | PM.OP.1 ---
Operative Date/Time/Diagnoses Date of procedure: 12/17/17 Time of procedure: 10:06 Pre-op diagnosis: Screening study Post-op diagnosis: same Procedure & Clinicians Procedure: Colonoscopy to the cecum with random mucosal biopsies Same procedure as scheduled: Yes Indications: Last colonoscopy more than 5 years ago Surgeon: Mary Andujar Click Yes if Unassisted: Yes Anesthesia Type: Sedation (Versed 4 mg; fentanyl 125 mcg) Operative Notes Findings: 1. Adequate prep 2. No polyps or mass lesions 3. No AV malformations 4. No obvious evidence of mucosal irritation or abnormality 5. Significant diverticulosis involving the entire descending and sigmoid colons. No evidence of inflammation 6. Very tortuous and lax colon 7. Grade 2 internal hemorrhoid Closure Type: not applicable Specimen(s): other (Random mucosal biopsies) Procedure in detail: After obtaining informed consent, the patient was brought to the GI suite and placed in the left lateral decubitus position on the examination table. After placement of appropriate monitors, the patient was given incremental doses of Versed and Fentanyl until an appropriate level of sedation was achieved. A time out was held per SCOAP protocol. A digital rectal examination was performed and did not reveal any masses or obstructing lesions. The colonoscope was gently passed into the patient's anus and the entire colon navigated to the level of the cecum with significant difficulty due to colon laxity and tortuosity. Once in the cecum, the scope was withdrawn being sure to go before and beyond all mucosal folds and prominences and get an excellent examination. The findings are noted above. At the level of the rectal vault, the scope was retroflexed and the internal anal canal was examined. The scope was straightened and air aspirated from the colon. The instrument was removed from the patient's body and the procedure was concluded. The patient was allowed to awaken from sedation without difficulty and taken to the post-anesthesia care unit in good condition. Total sedation times 31 min Total withdrawal time 11 min Complications: none Condition: stable Disposition: PACU Plan for aftercare: 1. Discharge to home 2. I do not recommend additional screening studies
== END 2017-12-17 10:54 | disposition home or self-care (01) ==
PROVIDERS: Family Provider Family Medicine; PCP Family Medicine; Visit Provider Surgery
PROC: 0DJD8ZZ Inspection of Lower Intestinal Tract, Via Natural or Artificial Opening Endoscopic (ICD-10-PCS; CPT 45378; principal; 2017-12-17 08:45)
DX: Z12.11 Encounter for screening for malignant neoplasm of colon (principal); K57.30 Diverticulosis of large intestine without perforation or abscess without bleeding; K64.1 Second degree hemorrhoids; I10 Essential (primary) hypertension; I25.2 Old myocardial infarction
CPT/HCPCS: G0121; 99151; 99152; 99153; J2250; J3010

== ENCOUNTER → 2017-12-18 08:53 | Outpatient (CLI) | payer OTHER, SELFPAY ==
[2017-12-18 10:42] LABS: Adenovirus F 40/41 Not Detected (Not Detect); Astrovirus Not Detected (Not Detect); Campylobacter Not Detected (Not Detect); Clostridium difficile toxin AB Not Detected (Not Detect); Cryptosporidium Not Detected (Not Detect); Cyclospora cayetanensis Not Detected (Not Detect); Entamoeba histolytica Not Detected (Not Detect); Enteroaggregative E.coli Not Detected (Not Detect); Enteropathogenic E.coli Not Detected (Not Detect); Enterotoxigenic E.coli It/st Not Detected (Not Detect); Giardia lamblia Not Detected (Not Detect); Norovirus GI/GII Not Detected (Not Detect); Plesiomonsa shigelloides Not Detected (Not Detect); Rotavirus A Not Detected (Not Detect); Salmonella Not Detected (Not Detect); Shiga-like toxin-prod E.coli Not Detected (Not Detect); Shigella/Enteroinvasive E.coli Not Detected (Not Detect); Vibrio Not Detected (Not Detect); Vibrio cholerae Not Detected (Not Detect); Yersinia enterocolitica Not Detected (Not Detect)
== END ==
PROVIDERS: Family Provider Family Medicine; PCP Family Medicine; Visit Provider Surgery
DX: R19.4 Change in bowel habit (principal)
CPT/HCPCS: 87507

== ENCOUNTER → 2018-01-05 13:30 | Outpatient (CLI) | payer OTHER, SELFPAY ==
--- NOTE | 2018-01-05 | OV.WND_ITS ---
Progress Note Details Patient Name: Harrison Egan Patient Number: [id number] PatientPatientDate: 01/05/2018 Clinician: Suha Sanford Physician / Hvac Installer: Martin Mcgraw SUBJECTIVE Chief Complaint This information was obtained from the patient Ulcer on right lateral leg. Allergies Novocain (Severity: Moderate, Reaction: adrenaline schaffer) HPI This information was obtained from the patient 01/05/18. Seen by Dr. Mcgraw. The patient does not report pain or significant drainage associated with the chronic right lower leg venous ulcer since her last visit. 12/15/17. Seen by Dr. Mcgraw. The patient does not report pain or significant drainage associated with the chronic right lower leg venous ulcer since her last visit. She's wearing a compression stocking daily to treat the associated chronic venous hypertension and did not tolerate a compression wrap in the past due to non-specific discomfort not felt to be related to PAD noting her WATSON on the right was 0.9. 12/01/17. Seen by Dr. Mcgraw. The patient does not report pain or significant drainage associated with the chronic right lower leg venous ulcer since her last visit. 11/19/17. Seen by Dr. Mcgraw. The patient does not report pain or significant drainage associated with the chronic right lower leg venous ulcer since her last visit. 11/12/17. Seen by Dr. Mcgraw. The patient was unable to tolerate her right lower leg compression wrap stating it kept falling down and she removed it on Thursday. She does not report pain or significant drainage associated with the right lower leg venous ulcer since her last visit and in general feels it's improving. 11/05/17. Seen by Dr. Mcgraw. The patient reports some discomfort over the anterior ankle after placing a Coban compression wrap at her last visit however she does not report pain or significant drainage associated with the chronic right lower leg venous ulcer. 11/03/17. Seen by Dr. Mcgraw. The patient does not report pain or significant drainage associated with the chronic right lower leg venous ulcer since her last visit. Her WATSON study today was .9 in the right lower leg. 10/27/17. Seen by Dr. Mcgraw. The patient does not report pain or significant drainage associated with the chronic right lower leg venous ulcer since her last visit. She does state though she's not wearing a compression stocking to address the chronic venous hypertension in the leg as recommended. 10/21/17. Seen by Dr. Mcgraw. The patient's wound culture from her last visit showed no growth and she reports less pain and drainage associated with the ulcer over the past few days. 10/14/17. Seen by Dr. Mcgraw. 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 She has chronic venous hypertension in the right lower leg but does not wear a compression stocking. She's also been on Keflex for cellulitis associated with the ulcer but feels the pain and redness has only partially resolved. She also has a history of diabetes that is fairly well controlled with most blood sugars below 200 she states. Family History This information was obtained from the patient Cancer - Sibling, Heart Disease - Mother, Lung Disease - Father, Stroke - Mother , Father Social History This information was obtained from the patient Former smoker - Age 19 quit in 1959, Alcohol Use - None, Caffeine Use - 1 per day, Children - 2 - lives in state, Lives in - Private home, Marital Status - , Retired Past Medical History This information was obtained from the patient Patient has a medical history of: Type II Diabetes High Cholesterol Hypothyroidism Pancreatitis Breast Cancer (L side) Surgical History This information was obtained from the patient Patient has a surgical history of: Mastectomy (L breast) Tonsillectomy Complaints and Symptoms This information was obtained from the patient Patient complains of: General Notes: I have reviewed and concur with the Review of Systems and Past Family Social History documents completed by the clinician, I have reviewed and concur with the Wound Assessment document completed by the clinician Cardiovascular (Central/Peripheral): Lower extremity (leg) swelling Hematologic/Lymphatic: Bleeding Tendency Integumentary (Hair/Skin/Nails): Open Sore Prior Wound History: Drainage, Erythema, Pain Patient denies complaints or symptoms related to: Cardiovascular (Central/Peripheral): Lower extremity (leg) resting pain Constitutional Symptoms (General Health): Chills, Fever Ear/Nose/Mouth/Throat: Hearing Loss / Aid Hematologic/Lymphatic: Bleeding / Clotting Disorders Neurological: Loss of Protective Sensation Respiratory: Shortness of Breath Additional Information Does patient have a history of Cancer? Yes? Complete all questions.: Yes Location of Cancer: L breast List Treating Oncologist: Surgeon- Dr. Colin Patient underwent Radiation Treatment? If yes, answer question below.: No Date of Radiation Month/Year: n/a OBJECTIVE Constitutional BP elevated; Afebrile; Alert and in no distress. Well developed. Alert. Clean appearing.. Height/Length: 61 in (154.94 cm), Weight: 156.8 lbs (71.27 kgs), BMI: 29.6, Temperature: 98.2 ?F (36.78 ?C), Pulse: 58 bpm, Respiratory Rate: 18 breaths/min, Blood Pressure: 183/84 mmHg, Capillary Blood Glucose: 158 mg/dl, Pulse Oximetry: 99 %. Vital Signs Notes: Glucose per patient Cardiovascular: 2+ right lower extremity edema. Integumentary (Hair, Skin) Hemosiderin staining noted over right lower leg. Refer to appropriate clinician wound documentation for this visit; right lower leg ulcer extends to subcut with base partially covered with pink granulation, remainder fibrin and slough. Wound #1 Right, Distal Leg is a chronic Full Thickness Venous Ulcer and has received an outcome of Continued improvement expected post discharge. Subsequent wound encounter measurements are 0.3cm length x 0.2cm width x 0.4cm depth, with an area of 0.06 sq cm and a volume of 0.024 cubic cm. No tunneling has been noted. No sinus tract has been noted. No undermining has been noted. There was no drainage noted. The patient reports a wound pain of level 0/10. The wound margin is attached. Wound bed has Yes epithelialization , No eschar, Yes slough, Yes pink, firm granulation. The periwound skin texture is normal. The periwound skin moisture is normal. The periwound skin exhibited: Hemosiderosis. The periwound skin did not exhibit: Atrophie Ana Luisa, Cyanosis, Ecchymosis, Erythema, Pallor, Rubor. The temperature of the periwound skin is WNL. Periwound skin does not exhibit signs or symptoms of infection. Local Pulse is Palpable. Neurological: Cranial nerves grossly intact with symmetric function normal by informal observation.. ASSESSMENT Active Problems ICD-10 (Encounter Diagnosis) L97.822 - Non-pressure chronic ulcer of other part of left lower leg with fat layer exposed (Encounter Diagnosis) I87.311 - Chronic venous hypertension (idiopathic) with ulcer of right lower extremity (Encounter Diagnosis) Z91.19 - Patient's noncompliance with other medical treatment and regimen PLAN Wound Orders: Wound #1 Right, Distal Leg Anesthetic Topical Xylocaine to wound bed. - In clinic only. Cleanser Cleanse Wound: - Normal saline and gauze in clinic, use distilled water at home. May Shower. - Use cast protector or plastic bag and tape. Can purchase cast protector at your local drug store near the pharmacy. Dressings Cover and secure with: - Bordered foam, may use bandaid at home. Change Dressing: - Every 3 days. Compression/Edema Control Elevation of leg(s) above the level of the heart when sitting. Avoid prolonged standing in one place. Single Layer Compression Hose - Tetragrip E tubular compression stocking. On in the morning, remove at night. Follow-Up Appointments Other information: If you develop fever, chills, increased pain, drainage, redness or swelling please call our office. If after hours, respond to the ER. Should you experience any significant changes in your wound(s) or have any questions regarding your home care instructions please contact the wound center @ [phone]. If after hours, contact your primary care physician or go to the hospital emergency room. Discharge from Outpatient Services. Scribing Attestation I attest, as the nurse, that I scribed these orders for the physician. I've reviewed the clinician's documentation and agree with the evaluation and plan as written. Also, the patient again chooses to not allow a compression wrap to be applied to the right lower leg which is the primary intervention to facilitate healing of her very refractory venous ulcer. She's chosen to defer further visits and has been advised that if the ulcer deteriorates she's welcome to return to clinic at that time. Electronic Signature(s) Signed By: Date: Martin Mcgraw MD 01/06/2018 06:45:54 Entered By: Martin Mcgraw on 01/06/2018 06:38:15
== END ==
PROVIDERS: Family Provider Family Medicine; PCP Family Medicine; Visit Provider Internal Medicine
DX: I87.311 Chronic venous hypertension (idiopathic) with ulcer of right lower extremity (principal); L97.812 Non-pressure chronic ulcer of other part of right lower leg with fat layer exposed; E11.628 Type 2 diabetes mellitus with other skin complications
CPT/HCPCS: 99213

== ENCOUNTER → 2018-04-16 08:30 | Outpatient (CLI) | payer OTHER, SELFPAY ==
[2018-04-16 09:23] LABS: Hemoglobin A1C% w Est Avg Glu 7.8 % (4.0-6.0)
[2018-04-16 09:58] LABS: BUN Creatinine Ratio 22.5 (6-22); Blood Urea Nitrogen 18 mg/dL (7-17); Calcium 9.3 mg/dL (8.4-10.2); Carbon Dioxide 29 mmol/L (22-32); Chloride 102 mmol/L (98-107); Estimated Glomerular Filt Rate > 60.0 mL/min (>60); Glucose 175 mg/dL (80-110); HEMOLYSIS < 15 (0-50); Potassium 4.2 mmol/L (3.4-5.1); Sodium 139 mmol/L (137-145)
== END ==
PROVIDERS: Family Provider Family Medicine; PCP Family Medicine; Visit Provider Family Medicine
DX: E11.9 Type 2 diabetes mellitus without complications (principal); E78.5 Hyperlipidemia, unspecified; I10 Essential (primary) hypertension; N18.9 Chronic kidney disease, unspecified
CPT/HCPCS: 36415; 80048; 83036